=== PATIENT | female | born 1955 ===

== ENCOUNTER 2019-10-20 13:54 | Outpatient (CLI) | payer MEDICARE, MEDICAID | END 2019-10-20 23:59 | disposition home or self-care (01) | LOC: DIABETIC 13:54 | PROVIDERS: ATTEND Surgery | DX: E66.01 Morbid (severe) obesity due to excess calories (principal); I10 Essential (primary) hypertension; M19.90 Unspecified osteoarthritis, unspecified site | CPT/HCPCS: 97802 ==

== ENCOUNTER 2019-12-03 00:57 | Outpatient (CLI) | payer MEDICARE, MEDICAID | END 2019-12-03 23:59 | disposition home or self-care (01) | LOC: DIABETIC 00:57 | PROVIDERS: ATTEND Surgery | DX: E66.01 Morbid (severe) obesity due to excess calories (principal); Z71.3 Dietary counseling and surveillance; Z68.38 Body mass index [BMI] 38.0-38.9, adult; I10 Essential (primary) hypertension; M15.9 Polyosteoarthritis, unspecified | CPT/HCPCS: 97803 ==

== ENCOUNTER 2019-12-22 00:41 | Outpatient (CLI) | payer MEDICARE, MEDICAID | END 2019-12-22 23:59 | disposition home or self-care (01) | LOC: DIABETIC 00:41 | PROVIDERS: ATTEND Surgery | DX: Z71.3 Dietary counseling and surveillance (principal); E66.01 Morbid (severe) obesity due to excess calories; Z68.42 Body mass index [BMI] 45.0-49.9, adult; Z01.818 Encounter for other preprocedural examination | CPT/HCPCS: 97803 ==